=== PATIENT | male | born 1960 | race Caucasian/White ===

== ENCOUNTER 2019-05-03 17:27 | Outpatient (REF) | payer MEDICAID, SELFPAY ==
[2019-05-03 20:14] LABS: Anion Gap 9.7 mmol/L (3-11); BUN 18 mg/dL (7-18); CO2 26.3 mmol/L (21.0-32.0); Calcium 8.9 mg/dL (8.5-10.1); Calculated LDL 129 mg/dL; Chloride 106 mmol/L (98-107); Cholesterol 212 mg/dL (50-200); Glucose 93 mg/dL (70-100); HDL Cholesterol 45 mg/dL (40-60); Potassium 4.2 mmol/L (3.5-5.1); Sodium 142 mmol/L (136-145); Triglyceride 191 mg/dL (30-150)
[2019-05-03 20:36] LABS: Hemoglobin A1C 5.3 % (4.5-6.2)
[2019-05-05 10:31] LABS: Hepatitis C Ab w Rflx HCV PCR Negative (NEGAT)
[2019-05-05 10:32] LABS: HIV-1/2 Ag & Ab Screen Negative (NEGAT)
== END 2019-05-03 17:47 ==
LOC: NCHCN 17:27
PROVIDERS: Visit Provider Family Medicine
DX: I10 Essential (primary) hypertension (principal); Z13.220 Encounter for screening for lipoid disorders; Z13.1 Encounter for screening for diabetes mellitus; Z11.4 Encounter for screening for human immunodeficiency virus [HIV]; Z11.59 Encounter for screening for other viral diseases
CPT/HCPCS: 80048; 80061; 83721; 86803; 87389; 83036

== ENCOUNTER 2022-03-09 17:01 | Outpatient (REF) | payer MEDICAID, SELFPAY ==
[2022-03-09 22:23] LABS: Anion Gap 4.5 mmol/L (3-11); BUN 20 mg/dL (7-18); CO2 26.5 mmol/L (21.0-32.0); CREATININE 1.5 mg/dL (0.70-1.30); Calcium 8.9 mg/dL (8.5-10.1); Chloride 102 mmol/L (98-107); Estimated GFR 47.42 (mL/min/1.73m2); Glucose 102 mg/dL (74-106); Potassium 3.3 mmol/L (3.5-5.1); Sodium 133 mmol/L (136-145)
== END 2022-03-09 17:02 | disposition home or self-care (01) ==
LOC: NCHCN 17:01
PROVIDERS: Visit Provider Family Medicine
DX: I10 Essential (primary) hypertension (principal)
CPT/HCPCS: 80048

== ENCOUNTER 2022-03-18 19:50 | Outpatient (REF) | payer SELFPAY | END 2022-03-18 19:51 | disposition home or self-care (01) | LOC: NCHCN 19:50 | PROVIDERS: Visit Provider Family Medicine | DX: N28.9 Disorder of kidney and ureter, unspecified (principal) | CPT/HCPCS: 87086 ==

== ENCOUNTER 2024-07-11 19:42 | Outpatient (REF) | payer SELFPAY ==
[2024-07-11 19:51] LABS: ALT 27 U/L (16-63); AST 18 U/L (15-37); Albumin 4.1 g/dL (3.4-5.0); Alkaline Phosphatase 75 U/L (46-116); Anion Gap 5.8 mmol/L (3-11); BUN 17 mg/dL (7-18); Bilirubin, Total 0.39 mg/dL (0.2-1.0); CO2 28.2 mmol/L (21.0-32.0); CREATININE 1.2 mg/dL (0.70-1.30); Calcium 9.3 mg/dL (8.5-10.1); Chloride 104 mmol/L (98-107); Estimated GFR 67.53 (mL/min/1.73m2); Glucose 92 mg/dL (74-106); Sodium 138 mmol/L (136-145); Total Protein 7.3 g/dL (6.4-8.2)
== END 2024-07-11 19:43 | disposition home or self-care (01) ==
LOC: NCHCN 19:42
PROVIDERS: Visit Provider Nurse Practitioner Family
DX: I10 Essential (primary) hypertension (principal)
CPT/HCPCS: 80053

== ENCOUNTER 2025-04-09 11:30 | Emergency (ER) | payer SELFPAY ==
[2025-04-09 11:39] VITALS: BP 172/107; PULSE 68; RESP 18; TEMP 36.7; O2SAT 97
--- NOTE | 2025-04-09 11:47 | ED.GENADUL_ITS ---
Discharge Plan Disposition Patient Disposition: Home Discharge Details Clinical Impression: Open wound of left thumb due to dog bite Primary Care Provider: Unknown,Unknown ED Provider: Geoffrey Arrington Home Meds and New Rx's Prescriptions: New cephalexin 500 mg capsule 500 mg PO QID 4 Days Qty: 16 0RF Discharge Instructions Additional Instructions: You were seen in the emergency department for your left thumb laceration which was closed with sutures that will need to be removed in 7 to 10 days. As we discussed, please keep your wound clean, dry and covered. Please do not soak in a tub, swim or engage in any activities which could introduce dirt into your wound. You may return to the emergency department, go to urgent care or go to your primary care provider in 7 to 10 days to have your stitches removed. As we discussed if you develop any foul-smelling drainage fevers streaking signs of infection or have any other concerns please return to the emergency department. Please take these antibiotics as directed. For your pain please take medications as follows: 1. Take acetaminophen (Tylenol), 1,000 mg (two 500 mg tabs) every 6 hours [2. Take ibuprofen (Advil), 400 mg every 6 hours.] Discharge Data Discharge Date/Time-TO BE ENTERED AT DEPARTURE: 04/09/25 14:39 HPI General Date/Time Provider Initiated Documentation: 04/09/25 11:46 . HPI Narrative: MDM This is an overall very well-appearing normothermic and nontachycardic 64-year-old [id number] male with exposed tendon on the left thumb from dog bite for which patient will receive tetanus immunization prophylactic 2 g cefazolin orthopedic consult. No pain on proportion to suggest necrotizing soft tissue infection. No obvious tendon disruption on exam. 156PM Patient's laceration was closed. Please see separate procedure note. During the course of administering lidocaine patient had some minor bleeding from his laceration. I held pressure during laceration repair and his bleeding stopped. After laceration repair I had emergency department ocular care technician [place] hold additional pressure for 7 minutes. I subsequently inspected the patient's wound. There is no ongoing bleeding. I observe the patient for another 5 minutes and there is no additional bleeding. Wound was dressed and patient was placed in a removable thumb spica splint to protect the wound. He does have a primary care provider and he is on blood pressure medications. Patient I discussed his elevated blood pressure. He does take blood pressure medications and has a primary care provider. HPI The patient presents for a dog bite. He reports an incident this morning at 5:30 AM where he was bitten by his pet dog on the left thumb. The dog has been vaccinated and is behaving normally. He is right-handed and experiences stiffness in the affected thumb, but does not believe there is any significant injury. He has no history of diabetes. Exam General: Well-appearing in no acute distress speaking in complete sentences. Head: Normocephalic, atraumatic. Eye: Extraocular eye movements intact. No conjunctival injection. No scleral icterus. Ear, nose, mouth, throat: Grossly normal inspection. Normal voice, handling secretions normally. Neck: Trachea midline. Cardiovascular: Well-perfused distal extremities. Respiratory: Nonlabored respiration. Gastrointestinal: Nondistended abdomen. Musculoskeletal: On the dorsal surface of the left thumb there is an open hemostatic approximately 3 cm laceration to the subcutaneous tissue with exposed tendon. Patient has intact motor function in his left thumb at the MCP and PIP joints in flexion extension and at the MCP joint on radial and ulnar deviation and abduction and adduction. Picture as follows: Skin: Normal for age and race, grossly normal temperature and turgor. No acute rash. Neurologic: Alert and appropriate, no apparent acute deficits. GCS 15. Psychiatric: Mood and manner are appropriate. Grooming and personal hygiene are appropriate. Related Data Home Medications ?Medication ?Instructions ?Recorded ?Confirmed cephalexin 500 mg capsule 500 mg PO QID 4 days #16 cap s 04/09/25 Previous Rx's ?Medication ?Instructions ?Recorded cephalexin 500 mg capsule 500 mg PO QID 4 days #16 cap s 04/09/25 Allergies Allergy/AdvReac Type Severity Reaction Status Date / Time venom-honey bee (bee venom Allergy Intermediate Swelling/Ed Verified 04/09/25 11:45 (honey bee)) pooja General Stated Complaint: AnimalBite SIMRAN: 3 Course Vital Signs Vital signs: Vital Signs Temperature 36.7 C 04/09/25 11:39 Pulse 68 04/09/25 11:39 Respiratory Rate 18 04/09/25 11:39 Blood Pressure 172/107 H 04/09/25 11:39 Pulse Oximetry 97 04/09/25 11:39 Temperature 36.7 C 04/09/25 11:39 Temperature Source Oral 04/09/25 11:39 Pulse 68 04/09/25 11:39 Respiratory Rate 18 04/09/25 11:39 Blood Pressure 172/107 H 04/09/25 11:39 Blood Pressure Position Sitting 04/09/25 11:39 Pulse Oximetry 97 04/09/25 11:39 Oxygen Delivery Method Room Air 04/09/25 11:39 Oxygen Flow Rate 0 04/09/25 11:39 Pain Level 5 04/09/25 11:39 Procedure Laceration Laceration 1: Date of Procedure: 04/09/25 Time of procedure: 13:39 Provider that performed the procedure: Geoffrey Wong Time Out Performed: Yes Patient Consented: Verbally Site: hand Side (If applicable): left Description: linear Depth: simple, single layer Pre-procedure medication: Other (15 mg ketorolac) Pre-repair:: wound explored and irrigated extensively Skin layer closed with: other (Prolene) Suture size: 5-0 Number of sutures:: 5 Technique: simple, interrupted Procedure Description/Note: Patient placed in removable thumb spica for immobilization PFSH All Active Problems (Updated 04/09/25 @ 12:14 by Geoffrey Arrington MD) Open wound of left thumb due to dog bite (Acute) Surgical History (Updated 10/02/13 @ 10:47 by Sue Balderas LPN) Repair, quadriceps tendon (03/31/99) Left Social History Smoking/Tobacco Use Status: Never Smoking risk assessment performed?: Yes Alcohol Intake: former Drug use: Occasionally Substance use type: marijuana Housing: house
--- NOTE | 2025-04-09 12:00 | DI.RAD_ITS ---
Exam(s) XR THUMB LT EXAM: XR THUMB LT CLINICAL HISTORY: dog bite. TECHNIQUE: 2D digital imaging was performed. Three views. COMPARISON: None. FINDINGS: BONES: No acute fracture is present. No bony destructive lesion is seen. JOINTS: No dislocation present. Degenerative changes at the metacarpophalangeal joints. SOFT TISSUE: Soft tissue laceration at the level of the proximal phalanx of the thumb. No foreign body. IMPRESSION: No acute bony abnormality. Soft tissue injury. DATA REPOSITORY: RADIATION DOSE DELIVERED:
[2025-04-09] MEDS: ceFAZolin 2 GM/50 ML BAG IVPB (12:13)
[2025-04-09] MEDS: Ketorolac 15 MG/ML VIAL IVP (12:13)
[2025-04-09] MEDS: Diph,Pertuss(Acell),Tet Vac/Pf 0.5 ML SYR IM (12:14)
--- NOTE | 2025-04-09 12:15 | NUR.NOTE ---
Faxed Dog Bite Form to [facility] Officer Dewey Azul
--- NOTE | 2025-04-09 12:39 | NUR.NOTE ---
Refaxed Dog Bite Form to [facility] Officer Ernesto Hughes
[2025-04-09] MEDS: Acetaminophen 500 MG TAB 1000 MG PO (14:04)
[2025-04-09 14:15] VITALS: BP 154/88; BP 172/107; PULSE 62; PULSE 68; RESP 16; RESP 18; TEMP 36.5; TEMP 36.7; O2SAT 97; O2SAT 99
== END 2025-04-09 14:39 | disposition home or self-care (01) ==
PROVIDERS: Emergency Provider Emergency Medicine
DX: S61.052A Open bite of left thumb without damage to nail, initial encounter (principal); W54.0XXA Bitten by dog, initial encounter; Z23 Encounter for immunization
CPT/HCPCS: 99284 ×2; 13132; 29125; 96375; 90471; 90715; 96365; 96366; 73140; J0690; J1885; J2003

== ENCOUNTER 2025-07-02 20:53 | Outpatient (REF) | payer SELFPAY | END 2025-07-02 20:54 | disposition home or self-care (01) | LOC: LBN 20:53 | PROVIDERS: Visit Provider Nurse Practitioner Family | DX: L98.9 Disorder of the skin and subcutaneous tissue, unspecified (principal) | CPT/HCPCS: 87077; 87070; 87205 ==